=== PATIENT | female | born 1980 | race African-American/Black ===

== ENCOUNTER 2022-10-10 19:19 | Emergency (ER) | payer BC, OTHER ==
[~2022-10-10] VITALS: Ht 165.1 cm; Wt 77.1 kg
[2022-10-10 19:44] VITALS: BP 143/76
[2022-10-10] MEDS ORDERED: KETOROLAC 30MG VIAL (30MG/ML) IM ONE (20:30)
[2022-10-10] MEDS ORDERED: OXYCODONE/ACETAMIN 5/325MG TAB PO ONE (22:00)
[2022-10-10] MEDS ORDERED: METH-662 PO (23:32)
[2022-10-10] MEDS ORDERED: DICL75TA5 PO (23:32)
== END 2022-10-10 23:41 | disposition home or self-care (01) ==
LOC: EDH 19:19
DX: S00.83XA Contusion of other part of head, initial encounter (principal); S49.91XA Unspecified injury of right shoulder and upper arm, initial encounter; M25.531 Pain in right wrist; W01.0XXA Fall on same level from slipping, tripping and stumbling without subsequent striking against object, initial encounter; Y93.89 Activity, other specified; Y92.89 Other specified places as the place of occurrence of the external cause; Y99.8 Other external cause status
CPT/HCPCS: 99284; 70450; 73100; 73070; 70140; 72125; 70486; 73200; 96372; J1885